=== PATIENT | female | born 1945 | race Caucasian/White ===

== ENCOUNTER 2020-07-23 15:05 | Inpatient (IN) ==
[2020-07-23] MEDS ORDERED: DICLOFENAC TP PRN (18:36)
[2020-07-23] MEDS ORDERED: Acetaminophen/Butalbital/CaffeineTABLET PO PRN (21:00)
[2020-07-23] MEDS: clonazePAM 0.5 MG TABLET PO PRN (21:32)
[2020-07-23] MEDS: Gabapentin 300 MG CAPSULE PO SCH (21:32)
[2020-07-23] MEDS: *HR* Metformin 500 MG TABLET PO SCH (21:40)
[2020-07-23] MEDS: Mirtazapine 15 MG TABLET PO SCH (23:37)
[2020-07-24 06:56] LABS: Basophils % 0.4 %; Eosinophils # 0.1 K/mcL (0.0-0.6); Eosinophils % 1.1 %; Hematocrit 36.8 % (35.3-44.9); Hemoglobin 11.9 g/dL (11.5-15.4); Immature Granulocytes % 0.4 % (0-4); Lymphocytes # 2.5 K/mcL (0.6-4.6); Lymphocytes % 44.6 %; Mean Corpuscular HGB Conc 32.3 g/dL (31.6-35.5); Mean Corpuscular Hemoglobin 25.3 pg (28.0-33.3); Mean Corpuscular Volume 78.3 fL (83.0-100.0); Mean Platelet Volume 9.6 fL (9.4-12.4); Monocytes # 0.4 K/mcL (0.0-1.3); Monocytes % 7.5 %; Neutrophils # 2.6 K/mcL (1.6-8.9); Platelet Count 372 K/mcL (140-400); Red Cell Distribution Width 15.6 % (11.5-14.5); White Blood Count 5.6 K/mcL (4.3-11.1)
[2020-07-24 07:17] LABS: BUN/Creatinine Ratio 49 (6-26); Blood Urea Nitrogen 30 mg/dL (8-23); Calcium 9.2 mg/dL (8.6-10.3); Carbon Dioxide 25 mEq/L (23-29); Chloride 97 mEq/L (98-107); Glucose 112 mg/dL (70-105); Osmolality,Calculated 287 (280-300); Platelet Estimate Normal (Normal); Potassium 3.4 mEq/L (3.5-5.1); Sodium 135 mEq/L (136-145); eGFR For African Americans > 60 (> 60); eGFR For Non-African Americans > 60 (> 60)
[2020-07-24 07:24] LABS: Activated Partial Thrombo Time 41.7 Seconds (26.0-36.0); INR 1.4
[2020-07-24] MEDS ORDERED: *HR* SitaGLIPtin 100 MG TABLET PO SCH (09:00)
[2020-07-24] MEDS ORDERED: Doxycycline 100 MG in 0.9 % Sodium Chloride Mini Bag 100 ML IVPB SCH ×2 (09:00→12:00)
[2020-07-24] MEDS: BuPROPion SR (12 HR) 150 MG TABLET PO SCH (09:46)
[2020-07-24] MEDS: Aspirin Enteric Coated 81 MG Tablet PO SCH (09:47)
[2020-07-24] MEDS: Gabapentin 300 MG CAPSULE PO SCH ×3 (09:47→20:52)
[2020-07-24] MEDS: *HR* Metformin 500 MG TABLET PO SCH ×2 (09:47→17:51)
[2020-07-24] MEDS: *HR* SitaGLIPtin 25 MG TABLET PO SCH (09:48)
[2020-07-24] MEDS: Fluticasone Propionate Nasal 50 MCG/SPRAY BOTTLE NS SCH (11:46)
[2020-07-24] MEDS: Dexamethasone 4 MG/ML VIAL IVP SCH (12:02)
[2020-07-24] MEDS: clonazePAM 0.5 MG TABLET PO PRN (20:52)
[2020-07-24] MEDS: Mirtazapine 15 MG TABLET PO SCH (20:52)
[2020-07-25] MEDS: Doxycycline 100 MG in 0.9 % Sodium Chloride Mini Bag 100 ML IVPB SCH ×3 (00:55→23:41)
[2020-07-25 08:16] LABS: Albumin 3.9 g/dL (3.5-5.7); Albumin/Globulin Ratio 1.3 (1.1-2.2); Bilirubin,Direct 0.2 mg/dL (0.0-0.2); Bilirubin,Indirect 0.6 mg/dL (0.0-1.0); Bilirubin,Total 0.8 mg/dL (0.3-1.0); Globulin 3.1 g/dL (2.4-3.5)
[2020-07-25] MEDS: Aspirin Enteric Coated 81 MG Tablet PO SCH (08:33)
[2020-07-25] MEDS: Gabapentin 300 MG CAPSULE PO SCH ×3 (08:33→21:31)
[2020-07-25] MEDS: *HR* Metformin 500 MG TABLET PO SCH ×2 (08:33→16:37)
[2020-07-25] MEDS: *HR* SitaGLIPtin 25 MG TABLET PO SCH (08:33)
[2020-07-25] MEDS: BuPROPion SR (12 HR) 150 MG TABLET PO SCH (08:33)
[2020-07-25] MEDS: Dexamethasone 4 MG/ML VIAL IVP SCH (08:34)
[2020-07-25] MEDS: Fluticasone Propionate Nasal 50 MCG/SPRAY BOTTLE NS SCH (08:34)
[2020-07-25] MEDS ORDERED: GuaiFENesin Liq 200 MG/10 ML UDC PO PRN (21:09)
[2020-07-25] MEDS: Mirtazapine 15 MG TABLET PO SCH (21:29)
[2020-07-25] MEDS: Acetaminophen 325 MG TABLET PO PRN (21:30)
[2020-07-25] MEDS: clonazePAM 0.5 MG TABLET PO PRN (21:38)
[2020-07-26] MEDS: Dexamethasone 4 MG/ML VIAL IVP SCH (09:59)
[2020-07-26] MEDS: *HR* Metformin 500 MG TABLET PO SCH ×2 (09:59→15:55)
[2020-07-26] MEDS: *HR* SitaGLIPtin 25 MG TABLET PO SCH (10:00)
[2020-07-26] MEDS: Aspirin Enteric Coated 81 MG Tablet PO SCH (10:00)
[2020-07-26] MEDS: BuPROPion SR (12 HR) 150 MG TABLET PO SCH (10:00)
[2020-07-26] MEDS: Gabapentin 300 MG CAPSULE PO SCH ×3 (10:01→22:15)
[2020-07-26] MEDS: Fluticasone Propionate Nasal 50 MCG/SPRAY BOTTLE NS SCH (10:01)
[2020-07-26] MEDS: Doxycycline 100 MG in 0.9 % Sodium Chloride Mini Bag 100 ML IVPB SCH (12:37)
[2020-07-26] MEDS: Doxycycline 100 MG CAPSULE PO SCH ×2 (14:17→22:13)
[2020-07-26] MEDS: clonazePAM 0.5 MG TABLET PO PRN (18:18)
[2020-07-26] MEDS: Mirtazapine 15 MG TABLET PO SCH (22:14)
[2020-07-27] MEDS: dexAMETHasone 4 MG TABLET PO SCH (09:05)
[2020-07-27] MEDS: BuPROPion SR (12 HR) 150 MG TABLET PO SCH (09:06)
[2020-07-27] MEDS: *HR* Metformin 500 MG TABLET PO SCH ×3 (09:06→17:54)
[2020-07-27] MEDS: Doxycycline 100 MG CAPSULE PO SCH ×2 (09:06→21:23)
[2020-07-27] MEDS: *HR* SitaGLIPtin 25 MG TABLET PO SCH (09:07)
[2020-07-27] MEDS: Aspirin Enteric Coated 81 MG Tablet PO SCH (09:07)
[2020-07-27] MEDS: Gabapentin 300 MG CAPSULE PO SCH ×3 (09:07→21:23)
[2020-07-27] MEDS: Fluticasone Propionate Nasal 50 MCG/SPRAY BOTTLE NS SCH (09:08)
[2020-07-27] MEDS: Mirtazapine 15 MG TABLET PO SCH (21:23)
[2020-07-28] MEDS: BuPROPion SR (12 HR) 150 MG TABLET PO SCH (09:21)
[2020-07-28] MEDS: Doxycycline 100 MG CAPSULE PO SCH ×2 (09:22→20:29)
[2020-07-28] MEDS: Aspirin Enteric Coated 81 MG Tablet PO SCH (09:23)
[2020-07-28] MEDS: *HR* Metformin 500 MG TABLET PO SCH ×2 (09:23→17:26)
[2020-07-28] MEDS: *HR* SitaGLIPtin 25 MG TABLET PO SCH (09:23)
[2020-07-28] MEDS: dexAMETHasone 4 MG TABLET PO SCH (09:24)
[2020-07-28] MEDS: Gabapentin 300 MG CAPSULE PO SCH ×3 (09:24→20:28)
[2020-07-28] MEDS: Acetaminophen 325 MG TABLET PO PRN (09:25)
[2020-07-28] MEDS: Fluticasone Propionate Nasal 50 MCG/SPRAY BOTTLE NS SCH (09:30)
[2020-07-28] MEDS: Simethicone 80 MG TAB.CHEW PO PRN ×2 (14:29→20:29)
[2020-07-28] MEDS: clonazePAM 0.5 MG TABLET PO PRN (20:28)
[2020-07-28] MEDS: Mirtazapine 15 MG TABLET PO SCH (20:28)
[2020-07-29] MEDS: BuPROPion SR (12 HR) 150 MG TABLET PO SCH (08:32)
[2020-07-29] MEDS: Aspirin Enteric Coated 81 MG Tablet PO SCH (08:32)
[2020-07-29] MEDS: *HR* SitaGLIPtin 25 MG TABLET PO SCH (08:32)
[2020-07-29] MEDS: dexAMETHasone 4 MG TABLET PO SCH (08:32)
[2020-07-29] MEDS: Gabapentin 300 MG CAPSULE PO SCH ×3 (08:32→21:49)
[2020-07-29] MEDS: Doxycycline 100 MG CAPSULE PO SCH (08:33)
[2020-07-29] MEDS: *HR* Metformin 500 MG TABLET PO SCH ×2 (08:34→16:47)
[2020-07-29] MEDS: Fluticasone Propionate Nasal 50 MCG/SPRAY BOTTLE NS SCH (08:35)
[2020-07-29] MEDS: Simethicone 80 MG TAB.CHEW PO PRN (13:25)
[2020-07-29] MEDS: Ondansetron ODT 4 MG TAB.RAPDIS SL PRN (13:25)
[2020-07-29] MEDS: clonazePAM 0.5 MG TABLET PO PRN (16:47)
[2020-07-29] MEDS: Mirtazapine 15 MG TABLET PO SCH (21:50)
[2020-07-30] MEDS: Simethicone 80 MG TAB.CHEW PO PRN ×3 (06:05→16:45)
[2020-07-30] MEDS: Aspirin Enteric Coated 81 MG Tablet PO SCH (09:09)
[2020-07-30] MEDS: *HR* Metformin 500 MG TABLET PO SCH ×2 (09:10→16:46)
[2020-07-30] MEDS: *HR* SitaGLIPtin 100 MG TABLET PO SCH (09:10)
[2020-07-30] MEDS: BuPROPion SR (12 HR) 150 MG TABLET PO SCH (09:11)
[2020-07-30] MEDS: Gabapentin 300 MG CAPSULE PO SCH ×3 (09:11→20:37)
[2020-07-30] MEDS: Fluticasone Propionate Nasal 50 MCG/SPRAY BOTTLE NS SCH (09:16)
[2020-07-30] MEDS: Ondansetron ODT 4 MG TAB.RAPDIS SL PRN (19:27)
[2020-07-30] MEDS: Mirtazapine 15 MG TABLET PO SCH (20:36)
[2020-07-31] MEDS: Ondansetron ODT 4 MG TAB.RAPDIS SL PRN ×2 (09:25→20:20)
[2020-07-31] MEDS: Aspirin Enteric Coated 81 MG Tablet PO SCH (09:25)
[2020-07-31] MEDS: BuPROPion SR (12 HR) 150 MG TABLET PO SCH (09:27)
[2020-07-31] MEDS: Gabapentin 300 MG CAPSULE PO SCH ×3 (09:28→20:20)
[2020-07-31] MEDS: *HR* SitaGLIPtin 100 MG TABLET PO SCH (09:28)
[2020-07-31] MEDS: Fluticasone Propionate Nasal 50 MCG/SPRAY BOTTLE NS SCH (09:31)
[2020-07-31] MEDS: clonazePAM 0.5 MG TABLET PO PRN (14:05)
[2020-07-31] MEDS: Mirtazapine 15 MG TABLET PO SCH (20:20)
[2020-08-01] MEDS: Aspirin Enteric Coated 81 MG Tablet PO SCH (08:27)
[2020-08-01] MEDS: BuPROPion SR (12 HR) 150 MG TABLET PO SCH (08:27)
[2020-08-01] MEDS: Gabapentin 300 MG CAPSULE PO SCH ×3 (08:28→20:34)
[2020-08-01] MEDS: *HR* SitaGLIPtin 100 MG TABLET PO SCH (08:29)
[2020-08-01] MEDS: Fluticasone Propionate Nasal 50 MCG/SPRAY BOTTLE NS SCH (08:32)
[2020-08-01] MEDS: Ondansetron ODT 4 MG TAB.RAPDIS SL PRN (10:57)
[2020-08-01] MEDS: Acetaminophen 325 MG TABLET PO PRN (10:57)
[2020-08-01] MEDS: clonazePAM 0.5 MG TABLET PO PRN (15:35)
[2020-08-01] MEDS: Simethicone 80 MG TAB.CHEW PO PRN (15:35)
[2020-08-01] MEDS: Mirtazapine 15 MG TABLET PO SCH (20:34)
[2020-08-02] MEDS: Aspirin Enteric Coated 81 MG Tablet PO SCH (09:42)
[2020-08-02] MEDS: *HR* SitaGLIPtin 100 MG TABLET PO SCH (09:43)
[2020-08-02] MEDS: BuPROPion SR (12 HR) 150 MG TABLET PO SCH (09:44)
[2020-08-02] MEDS: Gabapentin 300 MG CAPSULE PO SCH ×3 (09:44→19:34)
[2020-08-02] MEDS: Fluticasone Propionate Nasal 50 MCG/SPRAY BOTTLE NS SCH (09:48)
[2020-08-02] MEDS: Simethicone 80 MG TAB.CHEW PO PRN ×2 (09:50→18:05)
[2020-08-02] MEDS: Ondansetron ODT 4 MG TAB.RAPDIS SL PRN (14:47)
[2020-08-02] MEDS: Mirtazapine 15 MG TABLET PO SCH (19:34)
[2020-08-03] MEDS: BuPROPion SR (12 HR) 150 MG TABLET PO SCH (10:00)
[2020-08-03] MEDS: Gabapentin 300 MG CAPSULE PO SCH ×3 (10:00→20:12)
[2020-08-03] MEDS: Aspirin Enteric Coated 81 MG Tablet PO SCH (10:00)
[2020-08-03] MEDS: *HR* SitaGLIPtin 100 MG TABLET PO SCH (10:00)
[2020-08-03] MEDS: Fluticasone Propionate Nasal 50 MCG/SPRAY BOTTLE NS SCH (10:01)
[2020-08-03] MEDS: Ondansetron ODT 4 MG TAB.RAPDIS SL PRN (10:01)
[2020-08-03] MEDS: Mirtazapine 15 MG TABLET PO SCH (20:12)
[2020-08-04] MEDS: BuPROPion SR (12 HR) 150 MG TABLET PO SCH (09:10)
[2020-08-04] MEDS: Fluticasone Propionate Nasal 50 MCG/SPRAY BOTTLE NS SCH (09:10)
[2020-08-04] MEDS: Gabapentin 300 MG CAPSULE PO SCH ×3 (09:10→19:42)
[2020-08-04] MEDS: Aspirin Enteric Coated 81 MG Tablet PO SCH (09:10)
[2020-08-04] MEDS: *HR* SitaGLIPtin 100 MG TABLET PO SCH (09:11)
[2020-08-04] MEDS: Acetaminophen 325 MG TABLET PO PRN ×2 (12:09→19:42)
[2020-08-04] MEDS: Mirtazapine 15 MG TABLET PO SCH (19:42)
[2020-08-05] MEDS: Acetaminophen 325 MG TABLET PO PRN ×2 (05:48→20:40)
[2020-08-05 08:34] LABS: Basophils % 0.8 %; Eosinophils # 0.1 K/mcL (0.0-0.6); Eosinophils % 1.8 %; Hematocrit 34.7 % (35.3-44.9); Hemoglobin 11.1 g/dL (11.5-15.4); Immature Granulocytes % 0.3 % (0-4); Lymphocytes # 1.6 K/mcL (0.6-4.6); Lymphocytes % 41.5 %; Mean Corpuscular Hemoglobin 25.9 pg (28.0-33.3); Mean Corpuscular Volume 80.9 fL (83.0-100.0); Monocytes # 0.5 K/mcL (0.0-1.3); Monocytes % 12.9 %; Neutrophils # 1.6 K/mcL (1.6-8.9); Platelet Count 217 K/mcL (140-400); Red Blood Count 4.29 M/mcL (3.82-4.97); Red Cell Distribution Width 17.2 % (11.5-14.5); Segmented Neutrophils % 42.7 %; White Blood Count 3.8 K/mcL (4.3-11.1)
[2020-08-05 08:51] LABS: BUN/Creatinine Ratio 31 (6-26); Blood Urea Nitrogen 15 mg/dL (8-23); Calcium 8.8 mg/dL (8.6-10.3); Carbon Dioxide 26 mEq/L (23-29); Chloride 104 mEq/L (98-107); Glucose 124 mg/dL (70-105); Osmolality,Calculated 288 (280-300); Potassium 4.1 mEq/L (3.5-5.1); Sodium 138 mEq/L (136-145); eGFR For African Americans > 60 (> 60); eGFR For Non-African Americans > 60 (> 60)
[2020-08-05] MEDS: *HR* SitaGLIPtin 100 MG TABLET PO SCH (10:13)
[2020-08-05] MEDS: Gabapentin 300 MG CAPSULE PO SCH ×3 (10:13→20:41)
[2020-08-05] MEDS: BuPROPion SR (12 HR) 150 MG TABLET PO SCH (10:13)
[2020-08-05] MEDS: Aspirin Enteric Coated 81 MG Tablet PO SCH (10:13)
[2020-08-05] MEDS: Fluticasone Propionate Nasal 50 MCG/SPRAY BOTTLE NS SCH (10:18)
[2020-08-05] MEDS: Ondansetron ODT 4 MG TAB.RAPDIS SL PRN (13:12)
[2020-08-05] MEDS: Mirtazapine 15 MG TABLET PO SCH (20:40)
[2020-08-06] MEDS: Acetaminophen 325 MG TABLET PO PRN ×2 (06:12→20:31)
[2020-08-06] MEDS: Aspirin Enteric Coated 81 MG Tablet PO SCH (09:22)
[2020-08-06] MEDS: Gabapentin 300 MG CAPSULE PO SCH ×3 (09:23→20:31)
[2020-08-06] MEDS: BuPROPion SR (12 HR) 150 MG TABLET PO SCH (09:23)
[2020-08-06] MEDS: *HR* SitaGLIPtin 100 MG TABLET PO SCH (09:23)
[2020-08-06] MEDS: Fluticasone Propionate Nasal 50 MCG/SPRAY BOTTLE NS SCH (09:26)
[2020-08-06] MEDS: Mirtazapine 15 MG TABLET PO SCH (20:29)
[2020-08-06] MEDS: Baclofen 10 MG TABLET PO PRN (22:59)
[2020-08-07] MEDS: BuPROPion SR (12 HR) 150 MG TABLET PO SCH (09:43)
[2020-08-07] MEDS: *HR* SitaGLIPtin 100 MG TABLET PO SCH (09:43)
[2020-08-07] MEDS: Gabapentin 300 MG CAPSULE PO SCH ×3 (09:44→20:52)
[2020-08-07] MEDS: Aspirin Enteric Coated 81 MG Tablet PO SCH (09:44)
[2020-08-07] MEDS: Baclofen 10 MG TABLET PO PRN ×2 (10:23→20:51)
[2020-08-07] MEDS: Acetaminophen 325 MG TABLET PO PRN (10:23)
[2020-08-07] MEDS: Fluticasone Propionate Nasal 50 MCG/SPRAY BOTTLE NS SCH (11:37)
[2020-08-07] MEDS: Mirtazapine 15 MG TABLET PO SCH (20:52)
[2020-08-08] MEDS: Aspirin Enteric Coated 81 MG Tablet PO SCH (09:59)
[2020-08-08] MEDS: BuPROPion SR (12 HR) 150 MG TABLET PO SCH (09:59)
[2020-08-08] MEDS: Acetaminophen 325 MG TABLET PO PRN (09:59)
[2020-08-08] MEDS: *HR* SitaGLIPtin 100 MG TABLET PO SCH (10:00)
[2020-08-08] MEDS: Gabapentin 300 MG CAPSULE PO SCH ×3 (10:00→21:05)
[2020-08-08] MEDS: Fluticasone Propionate Nasal 50 MCG/SPRAY BOTTLE NS SCH (10:06)
[2020-08-08] MEDS: Baclofen 10 MG TABLET PO PRN (18:54)
[2020-08-08] MEDS: Mirtazapine 15 MG TABLET PO SCH (21:05)
[2020-08-09 08:31] VITALS: BP 133/72
[2020-08-09] MEDS: BuPROPion SR (12 HR) 150 MG TABLET PO SCH (09:52)
[2020-08-09] MEDS: Aspirin Enteric Coated 81 MG Tablet PO SCH (09:52)
[2020-08-09] MEDS: *HR* SitaGLIPtin 100 MG TABLET PO SCH (09:52)
[2020-08-09] MEDS: Gabapentin 300 MG CAPSULE PO SCH ×2 (09:52→14:14)
[2020-08-09] MEDS: Fluticasone Propionate Nasal 50 MCG/SPRAY BOTTLE NS SCH (09:58)
[2020-08-09] MEDS: Acetaminophen 325 MG TABLET PO PRN (09:59)
[2020-08-09] MEDS ORDERED: FLU Vac QV 20-21 (6Month+)/PF 0.5 ML SYRINGE IM ONE (12:11)
== END 2020-08-09 14:55 | disposition home health service (06) | DRG 177 ==
LOC: INPPIK 20:24
PROVIDERS: ADMIT Family Medicine; ATTEND Family Medicine

== ENCOUNTER 2020-10-21 14:53 | Inpatient (IN) ==
[2020-10-21] MEDS ORDERED: Dextrose Gel 15 GM/37.5 ML TUBE PO PRN ×2 (23:48)
[2020-10-21] MEDS ORDERED: D5% in Water 1,000 ML IVC PRN (23:48)
[2020-10-21] MEDS ORDERED: *HR* Dextrose 50 % in Water (Vial) 50 ML VIAL IVP PRN (23:48)
[2020-10-22] MEDS: *HR* OxyCODONE/APAP 5/325 TABLET PO PRN ×4 (00:26→20:20)
[2020-10-22] MEDS: Baclofen 10 MG TABLET PO PRN (06:14)
[2020-10-22 07:14] LABS: Basophils % 0.6 %; Eosinophils # 0.2 K/mcL (0.0-0.6); Eosinophils % 3.1 %; Hematocrit 32.7 % (35.3-44.9); Hemoglobin 10.5 g/dL (11.5-15.4); Immature Granulocytes % 0.1 % (0-4); Lymphocytes # 2.6 K/mcL (0.6-4.6); Lymphocytes % 36.3 %; Mean Corpuscular HGB Conc 32.1 g/dL (31.6-35.5); Mean Corpuscular Hemoglobin 24.9 pg (28.0-33.3); Mean Corpuscular Volume 77.7 fL (83.0-100.0); Mean Platelet Volume 9.4 fL (9.4-12.4); Monocytes # 0.8 K/mcL (0.0-1.3); Monocytes % 10.9 %; Neutrophils # 3.5 K/mcL (1.6-8.9); Platelet Count 220 K/mcL (140-400); Red Blood Count 4.21 M/mcL (3.82-4.97); Red Cell Distribution Width 16.3 % (11.5-14.5); White Blood Count 7.1 K/mcL (4.3-11.1)
[2020-10-22 07:33] LABS: BUN/Creatinine Ratio 20 (6-26); Blood Urea Nitrogen 10 mg/dL (8-23); Calcium 9.1 mg/dL (8.6-10.3); Carbon Dioxide 24 mEq/L (23-29); Chloride 98 mEq/L (98-107); Glucose 166 mg/dL (70-105); Osmolality,Calculated 277 (280-300); Potassium 3.9 mEq/L (3.5-5.1); Sodium 132 mEq/L (136-145); eGFR For African Americans > 60 (> 60); eGFR For Non-African Americans > 60 (> 60)
[2020-10-22] MEDS: *HR* Metformin 500 MG TABLET PO SCH ×2 (10:08→20:20)
[2020-10-22] MEDS: BuPROPion SR (12 HR) 150 MG TABLET PO SCH (10:08)
[2020-10-22] MEDS: Gabapentin 300 MG CAPSULE PO SCH ×3 (10:09→20:19)
[2020-10-22] MEDS: Aspirin Enteric Coated 81 MG Tablet PO SCH (10:09)
[2020-10-22] MEDS: *HR* SitaGLIPtin 100 MG TABLET PO SCH (10:09)
[2020-10-22] MEDS: Fluticasone Propionate Nasal 50 MCG/SPRAY BOTTLE NS SCH (10:10)
[2020-10-22] MEDS: Mirtazapine 15 MG TABLET PO SCH (20:19)
[2020-10-23] MEDS: *HR* OxyCODONE/APAP 5/325 TABLET PO PRN ×3 (02:22→20:44)
[2020-10-23] MEDS: *HR* Enoxaparin 40 MG/0.4 ML SYRINGE SQ SCH (06:19)
[2020-10-23] MEDS: Gabapentin 300 MG CAPSULE PO SCH ×3 (09:13→20:44)
[2020-10-23] MEDS: *HR* Metformin 500 MG TABLET PO SCH ×2 (09:14→20:44)
[2020-10-23] MEDS: Aspirin Enteric Coated 81 MG Tablet PO SCH (09:14)
[2020-10-23] MEDS: BuPROPion SR (12 HR) 150 MG TABLET PO SCH (09:15)
[2020-10-23] MEDS: *HR* SitaGLIPtin 100 MG TABLET PO SCH (09:15)
[2020-10-23] MEDS: Fluticasone Propionate Nasal 50 MCG/SPRAY BOTTLE NS SCH (09:17)
[2020-10-23] MEDS ORDERED: Lidocaine Viscous Oral Soln 15 ML SOLUTION MM PRN (16:23)
[2020-10-23] MEDS: Mirtazapine 15 MG TABLET PO SCH (20:44)
[2020-10-23] MEDS: clonazePAM 0.5 MG TABLET PO PRN (20:53)
[2020-10-24] MEDS: *HR* Enoxaparin 40 MG/0.4 ML SYRINGE SQ SCH (05:46)
[2020-10-24] MEDS: Ondansetron ODT 4 MG TAB.RAPDIS SL PRN ×2 (08:02→20:44)
[2020-10-24] MEDS: *HR* Metformin 500 MG TABLET PO SCH ×2 (09:34→20:49)
[2020-10-24] MEDS: Aspirin Enteric Coated 81 MG Tablet PO SCH (09:35)
[2020-10-24] MEDS: *HR* SitaGLIPtin 100 MG TABLET PO SCH (09:35)
[2020-10-24] MEDS: BuPROPion SR (12 HR) 150 MG TABLET PO SCH (09:35)
[2020-10-24] MEDS: Fluticasone Propionate Nasal 50 MCG/SPRAY BOTTLE NS SCH (09:37)
[2020-10-24] MEDS: Gabapentin 300 MG CAPSULE PO SCH ×3 (09:51→20:52)
[2020-10-24] MEDS: *HR* OxyCODONE/APAP 5/325 TABLET PO PRN ×2 (13:53→20:53)
[2020-10-24] MEDS: DOCOSANOL 10% TP SCH ×2 (18:31→20:52)
[2020-10-24] MEDS: Mirtazapine 15 MG TABLET PO SCH (20:53)
[2020-10-24] MEDS: clonazePAM 0.5 MG TABLET PO PRN (20:53)
[2020-10-25] MEDS: *HR* OxyCODONE/APAP 5/325 TABLET PO PRN ×3 (04:29→22:27)
[2020-10-25] MEDS: *HR* Enoxaparin 40 MG/0.4 ML SYRINGE SQ SCH (06:08)
[2020-10-25] MEDS: DOCOSANOL 10% TP SCH ×6 (06:58→22:28)
[2020-10-25] MEDS ORDERED: *HR* Metformin 500 MG TABLET PO SCH (09:00)
[2020-10-25] MEDS: BuPROPion SR (12 HR) 150 MG TABLET PO SCH (10:55)
[2020-10-25] MEDS: Aspirin Enteric Coated 81 MG Tablet PO SCH (10:55)
[2020-10-25] MEDS: Gabapentin 300 MG CAPSULE PO SCH ×3 (10:55→22:28)
[2020-10-25] MEDS: *HR* SitaGLIPtin 100 MG TABLET PO SCH (10:56)
[2020-10-25] MEDS: Fluticasone Propionate Nasal 50 MCG/SPRAY BOTTLE NS SCH (10:57)
[2020-10-25] MEDS: Loratadine 10 MG TABLET PO SCH (16:59)
[2020-10-25] MEDS: Ondansetron ODT 4 MG TAB.RAPDIS SL PRN (22:27)
[2020-10-25] MEDS: Mirtazapine 15 MG TABLET PO SCH (22:28)
[2020-10-25] MEDS: clonazePAM 0.5 MG TABLET PO PRN (22:28)
[2020-10-26] MEDS: DOCOSANOL 10% TP SCH ×6 (06:14→21:19)
[2020-10-26] MEDS: *HR* Enoxaparin 40 MG/0.4 ML SYRINGE SQ SCH (06:14)
[2020-10-26] MEDS: Aspirin Enteric Coated 81 MG Tablet PO SCH (10:25)
[2020-10-26] MEDS: *HR* SitaGLIPtin 100 MG TABLET PO SCH (10:25)
[2020-10-26] MEDS: Gabapentin 300 MG CAPSULE PO SCH ×3 (10:26→21:20)
[2020-10-26] MEDS: Loratadine 10 MG TABLET PO SCH (10:26)
[2020-10-26] MEDS: BuPROPion SR (12 HR) 150 MG TABLET PO SCH (10:26)
[2020-10-26] MEDS: Fluticasone Propionate Nasal 50 MCG/SPRAY BOTTLE NS SCH (10:35)
[2020-10-26] MEDS: *HR* OxyCODONE/APAP 5/325 TABLET PO PRN ×2 (10:35→21:20)
[2020-10-26] MEDS: Mirtazapine 15 MG TABLET PO SCH (21:19)
[2020-10-26] MEDS: clonazePAM 0.5 MG TABLET PO PRN (21:19)
[2020-10-26] MEDS: Baclofen 10 MG TABLET PO PRN (21:20)
[2020-10-27] MEDS: *HR* Enoxaparin 40 MG/0.4 ML SYRINGE SQ SCH (07:00)
[2020-10-27] MEDS: DOCOSANOL 10% TP SCH ×6 (07:01→19:55)
[2020-10-27] MEDS: Aspirin Enteric Coated 81 MG Tablet PO SCH (08:35)
[2020-10-27] MEDS: Sennosides/Docusate Sodium TABLET PO SCH ×2 (08:35→19:48)
[2020-10-27] MEDS: *HR* SitaGLIPtin 100 MG TABLET PO SCH (08:35)
[2020-10-27] MEDS: BuPROPion SR (12 HR) 150 MG TABLET PO SCH (08:35)
[2020-10-27] MEDS: Loratadine 10 MG TABLET PO SCH (08:36)
[2020-10-27] MEDS: Gabapentin 300 MG CAPSULE PO SCH ×3 (08:36→19:48)
[2020-10-27] MEDS: Fluticasone Propionate Nasal 50 MCG/SPRAY BOTTLE NS SCH (08:43)
[2020-10-27] MEDS: *HR* OxyCODONE/APAP 5/325 TABLET PO PRN ×2 (10:52→20:04)
[2020-10-27] MEDS: Mirtazapine 15 MG TABLET PO SCH (19:48)
[2020-10-27] MEDS: clonazePAM 0.5 MG TABLET PO PRN (20:04)
[2020-10-28] MEDS: *HR* OxyCODONE/APAP 5/325 TABLET PO PRN ×3 (04:46→20:39)
[2020-10-28] MEDS: DOCOSANOL 10% TP SCH ×6 (04:57→20:40)
[2020-10-28] MEDS: *HR* Enoxaparin 40 MG/0.4 ML SYRINGE SQ SCH (04:57)
[2020-10-28] MEDS: *HR* SitaGLIPtin 100 MG TABLET PO SCH (09:36)
[2020-10-28] MEDS: Aspirin Enteric Coated 81 MG Tablet PO SCH (09:36)
[2020-10-28] MEDS: Fluticasone Propionate Nasal 50 MCG/SPRAY BOTTLE NS SCH (09:36)
[2020-10-28] MEDS: Gabapentin 300 MG CAPSULE PO SCH ×3 (09:36→20:39)
[2020-10-28] MEDS: BuPROPion SR (12 HR) 150 MG TABLET PO SCH (09:36)
[2020-10-28] MEDS: Sennosides/Docusate Sodium TABLET PO SCH ×2 (09:37→20:40)
[2020-10-28] MEDS: Loratadine 10 MG TABLET PO SCH (09:37)
[2020-10-28] MEDS: Mirtazapine 15 MG TABLET PO SCH (20:39)
[2020-10-28] MEDS: clonazePAM 0.5 MG TABLET PO PRN (20:54)
[2020-10-29] MEDS: DOCOSANOL 10% TP SCH ×5 (05:20→17:17)
[2020-10-29] MEDS: *HR* Enoxaparin 40 MG/0.4 ML SYRINGE SQ SCH (05:20)
[2020-10-29] MEDS: Sennosides/Docusate Sodium TABLET PO SCH ×2 (09:29→19:52)
[2020-10-29] MEDS: Aspirin Enteric Coated 81 MG Tablet PO SCH (09:29)
[2020-10-29] MEDS: Fluticasone Propionate Nasal 50 MCG/SPRAY BOTTLE NS SCH (09:29)
[2020-10-29] MEDS: BuPROPion SR (12 HR) 150 MG TABLET PO SCH (09:30)
[2020-10-29] MEDS: Gabapentin 300 MG CAPSULE PO SCH ×3 (09:30→19:53)
[2020-10-29] MEDS: Loratadine 10 MG TABLET PO SCH (09:30)
[2020-10-29] MEDS: clonazePAM 0.5 MG TABLET PO PRN ×2 (09:30→19:53)
[2020-10-29] MEDS: *HR* SitaGLIPtin 100 MG TABLET PO SCH (09:30)
[2020-10-29] MEDS: Ondansetron ODT 4 MG TAB.RAPDIS SL PRN (17:21)
[2020-10-29] MEDS ORDERED: Simethicone 80 MG TAB.CHEW PO PRN (18:30)
[2020-10-29] MEDS: *HR* OxyCODONE/APAP 5/325 TABLET PO PRN (19:51)
[2020-10-29] MEDS: Mirtazapine 15 MG TABLET PO SCH (19:53)
[2020-10-30] MEDS: DOCOSANOL 10% TP SCH ×5 (03:36→15:26)
[2020-10-30] MEDS: *HR* Enoxaparin 40 MG/0.4 ML SYRINGE SQ SCH (05:01)
[2020-10-30 07:31] LABS: Basophils % 0.9 %; Eosinophils # 0.1 K/mcL (0.0-0.6); Eosinophils % 3.6 %; Hematocrit 31.6 % (35.3-44.9); Hemoglobin 9.9 g/dL (11.5-15.4); Immature Granulocytes % 0.3 % (0-4); Lymphocytes # 1.5 K/mcL (0.6-4.6); Lymphocytes % 45.3 %; Mean Corpuscular HGB Conc 31.3 g/dL (31.6-35.5); Mean Corpuscular Hemoglobin 24.9 pg (28.0-33.3); Mean Corpuscular Volume 79.6 fL (83.0-100.0); Monocytes # 0.4 K/mcL (0.0-1.3); Monocytes % 11.7 %; Neutrophils # 1.3 K/mcL (1.6-8.9); Platelet Count 275 K/mcL (140-400); Red Blood Count 3.97 M/mcL (3.82-4.97); Red Cell Distribution Width 16.3 % (11.5-14.5); Segmented Neutrophils % 38.2 %; White Blood Count 3.3 K/mcL (4.3-11.1)
[2020-10-30 07:40] LABS: BUN/Creatinine Ratio 20 (6-26); Blood Urea Nitrogen 10 mg/dL (8-23); Calcium 9.1 mg/dL (8.6-10.3); Carbon Dioxide 26 mEq/L (23-29); Chloride 103 mEq/L (98-107); Glucose 173 mg/dL (70-105); Osmolality,Calculated 287 (280-300); Potassium 4.2 mEq/L (3.5-5.1); Sodium 137 mEq/L (136-145); eGFR For African Americans > 60 (> 60); eGFR For Non-African Americans > 60 (> 60)
[2020-10-30] MEDS: *HR* SitaGLIPtin 100 MG TABLET PO SCH (08:42)
[2020-10-30] MEDS: *HR* OxyCODONE/APAP 5/325 TABLET PO PRN ×3 (08:42→21:51)
[2020-10-30] MEDS: Gabapentin 300 MG CAPSULE PO SCH ×3 (08:43→21:50)
[2020-10-30] MEDS: Aspirin Enteric Coated 81 MG Tablet PO SCH (08:43)
[2020-10-30] MEDS: BuPROPion SR (12 HR) 150 MG TABLET PO SCH (08:43)
[2020-10-30] MEDS: Loratadine 10 MG TABLET PO SCH (08:43)
[2020-10-30] MEDS: Sennosides/Docusate Sodium TABLET PO SCH (08:44)
[2020-10-30] MEDS: Fluticasone Propionate Nasal 50 MCG/SPRAY BOTTLE NS SCH (08:49)
[2020-10-30] MEDS: Baclofen 10 MG TABLET PO PRN (15:40)
[2020-10-30] MEDS: Mirtazapine 15 MG TABLET PO SCH (21:51)
[2020-10-30] MEDS: clonazePAM 0.5 MG TABLET PO PRN (21:51)
[2020-10-31] MEDS: *HR* Enoxaparin 40 MG/0.4 ML SYRINGE SQ SCH (05:31)
[2020-10-31] MEDS: Gabapentin 300 MG CAPSULE PO SCH ×3 (09:05→20:16)
[2020-10-31] MEDS: Aspirin Enteric Coated 81 MG Tablet PO SCH (09:05)
[2020-10-31] MEDS: Fluticasone Propionate Nasal 50 MCG/SPRAY BOTTLE NS SCH (09:05)
[2020-10-31] MEDS: BuPROPion SR (12 HR) 150 MG TABLET PO SCH (09:06)
[2020-10-31] MEDS: *HR* OxyCODONE/APAP 5/325 TABLET PO PRN ×3 (09:06→22:11)
[2020-10-31] MEDS: *HR* SitaGLIPtin 100 MG TABLET PO SCH (09:07)
[2020-10-31] MEDS: Loratadine 10 MG TABLET PO SCH (09:07)
[2020-10-31] MEDS: Mirtazapine 15 MG TABLET PO SCH (20:16)
[2020-10-31] MEDS: clonazePAM 0.5 MG TABLET PO PRN (20:16)
[2020-11-01] MEDS: *HR* Enoxaparin 40 MG/0.4 ML SYRINGE SQ SCH (06:15)
[2020-11-01 07:19] VITALS: BP 145/69
[2020-11-01] MEDS: BuPROPion SR (12 HR) 150 MG TABLET PO SCH (09:26)
[2020-11-01] MEDS: Gabapentin 300 MG CAPSULE PO SCH (09:26)
[2020-11-01] MEDS: clonazePAM 0.5 MG TABLET PO PRN (09:27)
[2020-11-01] MEDS: *HR* OxyCODONE/APAP 5/325 TABLET PO PRN (09:27)
[2020-11-01] MEDS: Loratadine 10 MG TABLET PO SCH (09:27)
[2020-11-01] MEDS: Aspirin Enteric Coated 81 MG Tablet PO SCH (09:27)
[2020-11-01] MEDS: *HR* SitaGLIPtin 100 MG TABLET PO SCH (09:27)
[2020-11-01] MEDS: Fluticasone Propionate Nasal 50 MCG/SPRAY BOTTLE NS SCH (09:28)
== END 2020-11-01 10:29 | disposition home health service (06) | DRG 946 ==
LOC: INPPIK 23:45
PROVIDERS: ADMIT Family Medicine; ATTEND Family Medicine